=== PATIENT | male | born 2000 | race Caucasian/White ===

== ENCOUNTER 2022-03-20 14:53 | Emergency (ER) | payer OTHER, SELFPAY ==
[2022-03-20 15:24] VITALS: BP 133/83; PULSE 60; RESP 19; TEMP 37.3; O2SAT 99; BMI 27.9
[2022-03-20 15:55] LABS: Appearance Urine UA CLEAR; Bilirubin Urine UA NEGATIVE (NEGATIVE); Color Urine UA YELLOW; Glucose Urine UA NEGATIVE (Negative); Ketones Urine UA NEGATIVE (NEGATIVE); Leukocyte Esterase Urine UA NEGATIVE (NEGATIVE); Nitrite Urine UA NEGATIVE (Negative); Occult Blood Urine UA TRACE-INTACT (Negative); Protein Urine UA NEGATIVE (Negative); Urobilinogen Urine UA 0.2 E.U./dL (0.2); pH Urine UA 6.5 (4.5-8.0)
[2022-03-20 16:13] LABS: Bacteria Urine None Seen; Culture Indicated Urine Cult Not Indicated; RBC Urine 0-1/HPF (0-5/HPF); WBC Urine None Seen (0-5/HPF)
[2022-03-20 17:24] LABS: Urine N gonorrhoeae NOT DETECTED
[2022-03-20 17:44] VITALS: BP 138/83; PULSE 75; O2SAT 99
--- NOTE | 2022-03-20 17:46 | ED.MALEGU ---
HPI - Male Genitourinary General Chief complaint: Urogenital-Male Stated complaint: std vs uti Time Seen by Provider: 03/20/22 14:56 Source: patient Mode of arrival: Family Vehicle History of Present Illness HPI Narrative: 22-year-old male nonsmoker with noncontributory chronic medical history presents with a chief complaint of a few days of a burning sensation on the tip of his penis. He denies any discharge. He is sexually active and has more than 1 partner. He denies fever or chills. He denies any traumatic injury. He is not dizzy nor weak or lightheaded denies any chest pain, shortness of breath. Related Data Previous Rx's Medication Instructions Recorded clotrimazole 1 % topical cream 1 applic topical BID 2 weeks #30 03/20/22 grams Allergies Allergy/AdvReac Type Severity Reaction Status Date / Time No Known Drug Allergies Allergy Verified 03/20/22 15:40 Review of Systems Review of Systems Narrative: GENERAL: Denies chills, fatigue, malaise, fever, sweats. HEENT: Denies sinus pain, ear pain, sore throat, difficulty swallowing, dizziness. RESPIRATORY: Denies dyspnea, cough, wheezing, hemoptysis, sputum. CARDIOVASCULAR: Denies chest pain, palpitations, orthopnea, edema, GASTROINTESTINAL: Denies nausea, vomiting, abdominal pain, diarrhea, constipation, melena. : See HPI MUSCULOSKELETAL: denies weakness, joint pain, or bony pain SKIN: Denies rash, skin lesions, or other NEUROLOGIC: Denies weakness, headache, numbness, change in speech, confusion, seizures, incoordination. PSYCHIATRIC: No concerning psychosocial issues. 12 point review of systems is negative except for those stated above Patient History Social History Smoking Status: Never smoker Smoking Status: Never smoker alcohol intake frequency: 0-2 drinks per day Substance Use Type: does not use Exam Narrative Exam Narrative: GEN: 22-year-old male AOx3 and in no obvious distress EYES: Pupils are equal, round, and reactive to light and accommodation. Extraoccular muscles are intact bilaterally. There is no subconjunctival hemorrhage or exudate. CHEST: Lungs are clear to auscultation bilaterally and free of wheezes, rales, or rhonchi. Heart rate is regular rhythm, there are no murmurs, clicks, rubs, or gallops. There is no chest wall tenderness. ABD: Abdomen is soft and nontender. There is no guarding or rebound. Bowel sounds are normal in all 4 quadrants. There is no mass or organomegaly. : Examined in standing position, no testicular pain, swelling, redness. No ulcerations, erythema or rash penis, no obvious drainage, perhaps a very small amount of erythema at urethral meatus EXT: Full painless ROM of all extremities with no loss of sensation or strength. SKIN: Warm, pink, and dry. No erythema or rash Initial Vital Signs Initial Vital Signs: Vital Signs Temperature 99.2 F 03/20/22 15:24 Pulse Rate 60 03/20/22 15:24 Respiratory Rate 19 03/20/22 15:24 Blood Pressure 133/83 03/20/22 15:24 Pulse Oximetry 99 03/20/22 15:24 Oxygen Delivery Method 03/20/22 15:24 Course Orders Ordered: ED Orders 03/20/22 15:26 Chlamydia Gonorrhea PCR -URINE Stat UA Complete [Urinalysis and Microscopic] Stat Vital Signs Vital signs: Vital Signs - 8 hr 03/20/22 15:24 03/20/22 17:44 Temperature 99.2 F Pulse Rate 60 75 Respiratory Rate 19 Blood Pressure 133/83 138/83 Pulse Oximetry 99 99 Oxygen Delivery Method Room Air Room Air MDM - Male Genitourinary Lab Data Labs: Lab Results 03/20/22 03/20/22 Range/Units 15:26 15:26 Urine Color Yellow Urine Appearance Clear Urine pH 6.5 (4.5-8.0) Ur Specific [place] 1.020 (1.000-1.035) Urine Protein Negative (Negative) Urine Glucose (UA) Negative (Negative) g/dL Urine Ketones Negative (NEGATIVE) Urine Occult Blood Trace-intact (Negative) Urine Nitrate Negative (Negative) Urine Bilirubin Negative (NEGATIVE) Urine Urobilinogen 0.2 (0.2) E.U./dL Ur Leukocyte Esterase Negative (NEGATIVE) Urine RBC 0-1/hpf (0-5/HPF) Urine WBC None seen (0-5/HPF) Urine Bacteria None seen (None) Ur Culture Indicated? Cult not indicated Ur Chlamydia DNA (PCR) Not detected N gonorrhoeae DNA (PCR) Not detected MDM Narrative Medical decision making narrative: 22-year-old sexually active male presents with irritation on the tip of his penis [] Multiple etiologies for patient's symptoms considered including, but not limited to: [Gonorrhea, chlamydia, Irina, urinary tract infection versus other] Labs reviewed and interpreted by myself: No evidence of UTI on the urine, both gonorrhea and chlamydia are also negative Findings and discharge diagnosis discussed with patient/family followed by verbalization of understanding Return precautions discussed with patient/family whom verbalize understanding of diagnosis and plan Discharge Plan Departure Patient Disposition: Home Clinical Impression: Candidal balanitis Activity Restrictions/Additional Instructions: *You have been diagnosed with [balanitis or mild urethritis. Your urine shows no sign of infection from typical bacteria and is negative for both gonorrhea and chlamydia. As we discussed we will treat for possible candidal infection] *What to do: *Please continue to take your regular medications as directed. [] New medication prescriptions sent to your pharmacy: [ ] [ x] New medication written as a paper prescription [ ] No new medications given *Please follow up with your primary care provider in 2-3 days, call for an appointment. Let them know you were seen in the Emergency Department and that we ask that you be seen in follow up. We will electronically transmit a record of today's note if your PCP is in our system *If you do not have a primary care provider please contact the [facility] Resource line at [phone]. They will ask some questions about your medical history and help get you set up with a doctor in the community. *Return to Emergency Department if you should have any new, worsening or concerning symptoms, such as [fever greater than 101 F, shaking chills, worsening pain, persistent vomiting or other bothersome symptoms] Prescriptions: New clotrimazole 1 % cream 1 applic topical BID 14 Days Qty: 30 0RF Referrals: ProviderKaitlyn [Primary Care Provider] - Stand Alone Forms: Patient Portal/API
[2022-03-20 17:48] LABS: Urine Chlamydia NOT DETECTED
== END 2022-03-20 18:38 | disposition home or self-care (01) ==
PROVIDERS: Nurse Practitioner Critical Care Medicine; Emergency Provider Emergency Medicine
DX: B37.42 Candidal balanitis (principal)
CPT/HCPCS: 81001; 87491; 87591; 99282